=== PATIENT | male | born 1930 | race Caucasian/White ===

== ENCOUNTER 2017-01-02 13:36 | Emergency (ER) | payer BC, MEDICARE ==
[2017-01-02] MEDS ORDERED: Sodium Chloride 0.9% 10 ML Syringe FLUSH PRN (13:59)
[2017-01-02] MEDS ORDERED: Clopidogrel 75 MG Tab PO ONE (15:36)
[2017-01-02 16:59] VITALS: BP 133/59
--- NOTE | 2017-01-03 04:34 | ER ---
DATE SEEN: 01/02/2017 TIME SEEN: The patient was seen at 1345 hours. HISTORY OF PRESENT ILLNESS: This 86-year-old man comes in with a chief complaint of 15 minutes transient garbled speech per his . 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 No previous history of myocardial infarction, CVA, TIA, head injury, fever, change in medications, or hypertension. No history of tachycardia, irregular rhythm, rhythm disturbance. Fund of knowledge appropriate except he could not repeat his son's name and perform calculations. He did not know the Governor of [place], but knew the Governor of [place]. He knew the capital [facility] was [place] and capital of [place] was [place] and felt it was Tuesday instead of Tuesday today. Patient's speech has been appropriate since the transient 15-second compromise in speech. Patient denies new paresis, weakness, difficulty swallowing. Denies chest pain, or shortness of breath, abdominal pain, nausea, vomiting, diarrhea, constipation, change in bowels, loss of bladder control, seizures, headaches; again compromised vision. PAST MEDICAL HISTORY: 1. Cholecystectomy. 2. Two herniorrhaphies. 3. Right total knee arthroplasty. 4. Left BK amputation. His states he has mild dementia. No previous history of garbled speech. REVIEW OF SYSTEMS: HEENT: Negative. CARDIORESPIRATORY: As above. GI: Negative. : Negative. Denies prostatism or difficulty passing urine. He had prostate cancer treated with radiation seeds. 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 PHYSICAL EXAMINATION: VITAL SIGNS: Blood pressure 133/92, heart rate 65, and regular, respirations 19, oxygen saturation 95%, temperature is 36.7 degrees centigrade. The patient is 92.03 kg. HEENT: Patient is hard of hearing. He has symmetrical face. Trace flush in his face - normal. Pharynx without abnormality. Gag in place. Uvula midline. Speech appropriate. No compromise in speech during the exam or his stay in the ED. NECK: Without thyromegaly, masses, or cervical adenopathy or bruits. HEART: S1, S2. No irregular rate or rhythm. ABDOMEN: Soft. No guarding. No abdominal discomfort. No CVA percussion tenderness. EXTREMITIES: Left BK amputation with prosthesis in place. Right leg normal. The patient has very normal strength with hyperextension. He can pull him down to the length of the bed very easily and has good strength and hyperextension of his feet - dorsiflexion. Resistive plantar flexion intact. Dorsalis pedis intact in the right lower extremity. Hypoactive knee jerks, but present. Biceps, brachioradialis, upper extremity reflexes. DIAGNOSTIC DATA: CAT scan, no acute cranial or intracranial process. Posterior opacification of right ethmoid air cells. Healthy secretions with air-fluid levels in the right maxillary sinus along with mucosal thickening circumferentially. Suggests mild acute sinusitis. LABORATORY DATA: Normal white count 8300, PMNs 51, lymphocytes 34, monos 9, eos 6%, hemoglobin 13.8. INR is normal at 1.05, normal electrolytes. Potassium 4.4, sodium 141, chloride 107, CO2 of 24, BUN 22, creatinine 1.3, GFR 52, glucose 114. Troponin less than 0.01. ASSESSMENT: 1. Possible transient ischemic attack. 2. Garbled speech, transient. 3. MRI to fully define any pathology. 4. Negative CAT scan of the head. 5. Overweight. 6. Uses anticoagulant aspirin 325 mg daily. 7. Glaucoma. PLAN: Status discussed with Dr. Navarro, neurologist, [facility]. The patient will be transferred by car. I spoke to Dr. Lopez, doctors, anticipated him for further stratification, and further evaluation in the ED. /[id number] SHALA/MAHNAZ
--- NOTE | 2017-01-03 13:36 | CR ---
INDICATION: Rales left base, garbled speech. CHEST: AP and lateral views of the chest 01/02/2017 were compared with 2015 and 11/17/2010, revealing heavy markings in the mid to lower lung dutta, and especially at the left lung base, compatible with pulmonary fibrosis. It is difficult with this appearance to exclude areas of patchy bronchopneumonia superimposed on these areas of probable fibrosis, especially at the left lung base and right mid lung field. Findings are also compatible with progressive COPD with increased flattening of diaphragm leaves and prominent AP diameter. Diminished bone density is noted, compatible with osteoporosis with compression of anterior vertebral body margins at two mid thoracic levels, unchanged from the previous study of 2016. A definite consolidating pneumonia or effusion was not identified. The heart is enlarged. The aorta is tortuous and calcified. Deformity is noted at posterior right ribs, compatible with healed fractures. Prominence of the superior mediastinum is felt to be mostly due to prominent brachiocephalic vessels. IMPRESSION: 1. Pulmonary fibrosis with difficulty in excluding patchy bronchopneumonia right mid lung field and especially left lung base. Atelectatic change could also be present at the left lung base. 2. COPD, progressive. 3. ASHD with cardiomegaly. 4. Osteoporosis with stable compressions. MTDD
== END 2017-01-02 16:00 ==
LOC: FB.ED 13:36
DX: R47.89 Other speech disturbances (principal); E66.9 Obesity, unspecified; H40.9 Unspecified glaucoma; Z79.01 Long term (current) use of anticoagulants; Z79.82 Long term (current) use of aspirin; Z89.512 Acquired absence of left leg below knee
CPT/HCPCS: 36415; 70450; 71020; 80053; 83605; 84443; 84484; 85025; 85610; 87040; 93005; 99285; A9270; J7050